=== PATIENT | female | born 1970 | race Caucasian/White ===

== ENCOUNTER → 2017-03-18 | Outpatient (CLI) | payer OTHER | LOC: FIMAGING 14:27 | PROVIDERS: ATTEND Obstetrics & Gynecology | DX: Z12.31 Encounter for screening mammogram for malignant neoplasm of breast (principal) ==

== ENCOUNTER → 2017-04-14 | Outpatient (CLI) | payer OTHER | LOC: BMCIMAGING 12:45 | PROVIDERS: ATTEND Family Medicine | DX: M79.661 Pain in right lower leg (principal) ==

== ENCOUNTER 2017-07-06 05:47 | Observation (INO) | payer OTHER ==
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
[2017-07-06] MEDS ORDERED: ceFAZolin 2 GM/SWFI 2 GM/20 ML SYR IVP ONE (06:14)
[2017-07-06] MEDS ORDERED: LR 1,000 ML IV ONE (06:14)
[2017-07-06] MEDS ORDERED: BUPIVACAINE 0.5% 30 ML SDV ONE (06:16)
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
[2017-07-06] MEDS ORDERED: SCOPOLAMINE HYDROBROMIDE 1 MG/3 DAYS PATCH TD ONE ×2 (06:58→07:09)
[2017-07-06] MEDS ORDERED: MIDAZOLAM 2 MG/2 ML VIAL IVP ONE (06:58)
[2017-07-06] MEDS ORDERED: fentaNYL 250 MCG/5 ML INJ ONE (07:04)
[2017-07-06] MEDS ORDERED: PROPOFOL 200 MG/20 ML VIAL ONE (07:05)
[2017-07-06] MEDS ORDERED: ROCURONIUM 50 MG/5 ML VIAL ONE (07:06)
[2017-07-06] MEDS ORDERED: DEXAMETHASONE 4 MG/ML VIAL ONE ×2 (07:06)
[2017-07-06] MEDS ORDERED: MIDAZOLAM 2 MG/2 ML VIAL ONE (07:10)
--- NOTE | 2017-07-06 07:15 | PDHPUP ---
History & Physical Update H&P update statement: This history and physical update is based on an assessment of the patient which was completed after admission or registration (within 24 hours), but prior to the surgery/procedure. H&P update: H&P reviewed & patient examined
[2017-07-06] MEDS ORDERED: PHENYLEPHRINE HCL 100 MCG/ML SYR ONE (07:35)
[2017-07-06] MEDS ORDERED: fentaNYL 100 MCG/2 ML INJ ONE ×2 (08:57→10:08)
[2017-07-06] MEDS ORDERED: HYDROmorphONE/DILAUDID 2 MG/ML INJ IVP PRN ×2 (09:08→11:39)
[2017-07-06] MEDS ORDERED: ONDANSETRON 4 MG/2 ML VIAL IVP PRN ×2 (09:08→09:36)
[2017-07-06] MEDS ORDERED: NALOXONE HCL 0.4 MG/ML INJ IVP PRN ×2 (09:08→09:41)
[2017-07-06] MEDS ORDERED: ONDANSETRON 4 MG/2 ML VIAL ONE (09:10)
[2017-07-06] MEDS ORDERED: SUGAMMADEX SODIUM 200 MG/2 ML VIAL IVP ONE (09:16)
[2017-07-06] MEDS ORDERED: ONDANSETRON DISINTEGRATING 4 MG TAB PO PRN (09:36)
[2017-07-06] MEDS ORDERED: KETOROLAC 30 MG/1 ML SDV IVP ONE (09:36)
--- NOTE | 2017-07-06 09:37 | POSTOPPROG ---
Post Op Note Date of Operation: 07/06/17 Surgeon: Arely Gresham Powertrain Design Engineer: Zuly Turner Anesthesiologist: Dr Trell Peguero Anesthesia: GET(General Endotracheal) Pre-op Diagnosis: Severe dysmenorrhea and complex R ovarain mass Post-op Diagnosis: same Procedure: TLH, RSO, L salpingectomy Findings: normal uterus and left tube and ovary, complex mass on right ovary Inf/Abcess present in the surg proc area at time of surgery?: No Depth: Organ Space EBL: 50-100 Total fluids administered: 1000 Complications: none Specimen(s): uterus with cervix, right tube and ovary, left tube
[2017-07-06] MEDS ORDERED: HYDROmorphONE/DILAUDID 6 MG/30 ML PCA IV PRN (09:41)
[2017-07-06] MEDS ORDERED: MAGNESIUM HYDROXIDE 30 ML UDCUP PO PRN (09:42)
[2017-07-06] MEDS ORDERED: LACTULOSE 20 GM/30 ML UDCUP PO PRN (09:42)
[2017-07-06] MEDS ORDERED: POLYETHYLENE GLYCOL 3350 17 GM PKT PO PRN (09:42)
[2017-07-06] MEDS ORDERED: BISACODYL 10 MG SUPP PR PRN (09:42)
--- NOTE | 2017-07-06 10:11 | POSTANESTH ---
Post Anesthetic Evaluation Cardiovascular Status: Normal, Stable Respiratory Status: Normal, Stable Level of Consciousness/Mental Status: Can Participate in Eval Pain Control: Adequate, Prn Tx Ordered Nausea/Vomiting Control: Adequate, Prn Tx Ordered Complications Possibly Related to Anesthesia: None Noted
[2017-07-06] MEDS ORDERED: KETOROLAC 30 MG/1 ML SDV ONE (10:12)
[2017-07-06] MEDS: fentaNYL 100 MCG/2 ML INJ IVP PRN ×2 (10:14→10:36)
--- NOTE | 2017-07-06 10:29 | GOP ---
[f rep st] OPERATIVE REPORT DATE OF OPERATION: 07/06/2017 SURGEON: Arely Gresham MD FOAM CASTER: Zuly Turner DO. ANESTHESIA: General anesthesia. ANESTHESIOLOGIST: Trell Peguero MD. PREOPERATIVE DIAGNOSIS: Severe dysmenorrhea and complex right ovarian mass. POSTOPERATIVE DIAGNOSIS: Severe dysmenorrhea and complex right ovarian mass. PROCEDURE PERFORMED: Total laparoscopic hysterectomy, right salpingo oophorectomy, left salpingectom y. FINDINGS: ESTIMATED BLOOD LOSS: For the procedure was 50 cc. DESCRIPTION OF PROCEDURE: The patient was taken to the operating room where she was placed under gen eral anesthesia without difficulty. She was prepped and draped in the dorsal lithotomy position and a Cassidy catheter was placed in her bladder. After adequate anesthesia was assured and a WHO time-out was performed, an open-sided speculum was placed in the vagina, and a single-tooth tenaculum was use d to grasp the anterior lip of the cervix. The uterus sounded to 8 cm. The cervix was progressively dilated with Pierre dilators to a #7.5. The MAUREEN uterine manipulator with the 8 cm sound and a smal l cervical cup was placed through the cervix, balloon was inflated, and the cup was placed around the cervix and the speculum was removed. The tenaculum was removed. Attention was then turned to the abdominal portion of the procedure. After injection of Marcaine, a 5 mm transverse incision was made in the infraumbilical skin fold. A Veress needle was placed throug h that incision and there was a good drop in pressure and a normal saline drop test, and pneumoperito neum was created with carbon dioxide gas. An atraumatic trocar was placed under direct visualization and the cavity was entered. Inspection of the cavity revealed a normal size uterus. The patient wa s placed in steep Trendelenburg. After injection of Marcaine, a 5 mm skin incision was made in the l eft lower quadrant and a 1 cm skin incision was made in the right lower quadrant and atraumatic troca rs were placed under direct visualization on both sides. The bowel was moved away. The uterus was m anipulated with the MAUREEN and visualization was made and photographs were taken of the normal-appearin g uterus and normal-appearing left tube and ovary and the right ovary with a complex cyst. There wer e no excrescences, no abnormalities in the fallopian tube or any other abnormalities in the pelvis to make us concerned of malignancy. The left fallopian tube was grasped at the fimbriated end and elev ated. The LigaSure was used to cauterize and cut along the fimbriated end, along the mesosalpinx to the cornual region of the uterus and the tube was directly removed through the 10 mm port. Dissectio n was then continued along the utero-ovarian ligament. The round ligament was dissected in the anter ior and posterior planes, and the broad ligament was dissected to form the bladder flap. The vesicou terine peritoneum was elevated and dissected off with the LigaSure. The uterine vessels were identif ied and cauterized and cut also with the LigaSure, and good hemostasis was assured. The fascial plan e was dissected along the posterior aspect of the cervix with visualization of the cup around the cer vix circumferentially dissected to create the bladder flap and the posterior flap. Attention was then turned to the right side of the abdomen and the right ovary with the mass was elev ated and the ureter was clearly visualized peristalsing normally in the pelvic brim away from the ova jarred vasculature. The right tube and ovary were grasped at the fimbriated end of the tube and the in fundibulopelvic ligament was cauterized and cut along the right pelvic plane, and that was carried ou t to the cornual region of the uterus. The round ligament was then entered into the anterior and po sterior plane, the broad ligament was also dissected and the bladder flap was continued from the plan e from the left side as well as the posterior aspect of the fascial plane along the cervical cup unti l it was clearly visualized throughout. The cup was clearly visualized and the area of the colpotomy was clearly demarcated. The hook of the LigaSure was then advanced and the colpotomy was made along the entire cervical cup without difficulty. There was good hemostasis. The uterus and right tube a nd ovary were then removed through the vagina, and a lap sponge was inserted through the vagina to co ntinue pneumoperitoneum. The 0 Vicryl V-Loc suture was then performed to close the colpotomy from le ft to right. The sutures were performed, and there was good hemostasis along the cuff. This was per formed without difficulty. The pelvis was then copiously irrigated with warm normal saline. There w as hemostasis observed along the vaginal cuff. The left ovary was normal and hemostatic. The bed of the right ovary was normal and hemostatic, and both ureters were visualized post surgery peristalsin g normally without difficulty. The appendix was visualized as was the liver and the gallbladder whic h appeared normal. The 1 cm trocar was then removed and the fascia was closed with a fascial closure device with 0 Vicryl, and all of the trocars were removed. Pneumoperitoneum was allowed to escape, and the incisions were repaired with 4-0 Vicryl in a subcuticular fashion and Steri-Strips were appli ed. The patient tolerated the procedure well. Sponge, lap, needle, and instrument counts were corre ct x2. The patient went to the recovery room in good condition. INDICATIONS FOR PROCEDURE: The patient is a 46-year-old, 0, with a longstanding history of s evere dysmenorrhea for most of her life. She has regular cycles every 28 days, bleeds 5-7 days, requ ires scheduled nonsteroidal anti-inflammatories as well as muscle relaxers and narcotics during every period every month. We have explored multiple hormonal options to control her periods with oral con traceptive pills, Mirena IUD. She was unable to tolerate these. She had an ultrasound to evaluate h er continued bleeding and pain, and the ultrasound demonstrated a complex right ovarian mass which wa s 3 x 4 cm, had an irregular-shaped complex nature of the mass and low level blood flow. The left ov jose was normal. Uterus was normal. I performed tumor markers, which were all normal. There was no ascites or any other characteristics for the mass. However, my recommendation was to proceed with re moval of the mass for a diagnosis and treatment, and proceed with hysterectomy because of her longsta nding history of dysmenorrhea. The patient agreed with this plan. She was consented for the procedu re. She understood the risks and benefits. The risks including bleeding, infection, damage to inter nal organs, ovaries, bowel, bladder, nerves, blood vessels, ureters, need for open procedure, need fo r additional procedures. She understood these risks and benefits agreed to proceed. FLUID REPLACEMENT: 1000 cc. URINE OUTPUT: 160 cc. PATHOLOGIC SPECIMEN: Uterus with cervix, right tube and ovary and left tube. /[id number]/MODL
[2017-07-06] MEDS: HYDROCODONE/APAP 5/325 TAB PO PRN ×4 (14:04→23:46)
[2017-07-06] MEDS: KETOROLAC 30 MG/1 ML SDV IVP SCH ×2 (16:22→21:57)
[2017-07-06] MEDS: SIMETHICONE 80 MG TAB CHEW PO PRN (21:57)
[2017-07-06] MEDS: SENNOSIDES/DOCUSATE SODIUM TAB PO SCH (23:51)
[2017-07-07] MEDS ORDERED: KETOROLAC 30 MG/1 ML SDV IVP SCH (05:00)
[2017-07-07] MEDS: SIMETHICONE 80 MG TAB CHEW PO PRN (05:00)
[2017-07-07] MEDS: HYDROCODONE/APAP 5/325 TAB PO PRN ×2 (05:00→08:50)
[2017-07-07 05:33] LABS: PLATELET COUNT 163 10^3/uL (150-400)
[2017-07-07] MEDS: SENNOSIDES/DOCUSATE SODIUM TAB PO SCH (08:51)
[2017-07-07] MEDS ORDERED: IRON POLYSAC/IRON HEME 28 MG TAB PO SCH (10:00)
--- NOTE | 2017-07-07 10:08 | SOAPPROG ---
SOAP Progress Note Assessment/Plan: Assessment: 46 y/o POD #1 s/p TLH, RSO, L salpingectomy doing well. Plan: Pt is ready to d/c home with [place], Ibuprofen, and Bifera. Follow-up @ [facility] 2 and 4 weeks. Call for fever, heavy vaginal bleeding, severe nausea/ vomiting or other concerns. 07/07/17 10:02 Subjective: Pt is doing well this am. She has good pain control with [place] and Ibuprofen. She is tolerating reg diet and ambulating and voiding without difficulty. She is ready to d/c home. Objective: Vital Signs Temp Pulse Resp BP Pulse Ox 36.8 C 63 16 85/50 L 95 07/07/17 05:00 07/07/17 05:00 07/07/17 05:00 07/07/17 05:00 07/07/17 05:00 Laboratory Results 07/07/17 05:28 07/06/17 07/07/17 07/08/17 05:59 05:59 05:59 Intake Total 2600 Output Total 1850 Balance 750 - Pending Discharge Pending Discharge Within 24 Hours: Yes Pending Discharge Date: 07/08/17 Pending Discharge Time: 11:00 Physical Exam - Physical Exam General Appearance: WD/WN, alert, no apparent distress Neck: non-tender, full range of motion, supple Respiratory: chest non-tender, lungs clear, normal breath sounds Cardiac/Chest: regular rate, rhythm Abdomen: normal bowel sounds, non-tender, soft, other (incision c/d/i) Extremities: swelling (no), Luly's sign (neg) ICD10 Worksheet Patient Problems: Problems Problem Status Onset Status post laparoscopic hysterectomy Acute
[2017-07-07 10:09] VITALS: BP 96/54
[2017-07-07] MEDS ORDERED: IBUPROFEN 600 MG TAB PO SCH (11:00)
== END 2017-07-07 11:05 | disposition home or self-care (01) ==
LOC: F3E 05:47 → FOB 11:24
PROVIDERS: ADMIT Obstetrics & Gynecology; ATTEND Obstetrics & Gynecology
DX: N83.201 Unspecified ovarian cyst, right side (principal); D25.2 Subserosal leiomyoma of uterus; N80.0 Endometriosis of uterus
CPT/HCPCS: 58571; G0378; J0690; J1100; J1170; J1885; J2250; J2370; J2405; J2704; J3010

== ENCOUNTER 2017-07-18 23:47 | Emergency (ER) | payer OTHER ==
[2017-07-19] MEDS ORDERED: NS 1,000 ML IV ONE (00:16)
[2017-07-19 00:58] LABS: PLATELET COUNT 230 10^3/uL (150-400)
[2017-07-19] MEDS ORDERED: IOPAMIDOL (ISOVUE-300) 100 ML BTL ONE (01:01)
[2017-07-19] MEDS ORDERED: IBUPROFEN 600 MG TAB PO ONE (01:23)
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
[2017-07-19 03:07] VITALS: BP 110/79
== END 2017-07-19 03:12 | disposition home or self-care (01) ==
DX: N99.820 Postprocedural hemorrhage of a genitourinary system organ or structure following a genitourinary system procedure (principal); E86.9 Volume depletion, unspecified; Z79.82 Long term (current) use of aspirin; Z87.891 Personal history of nicotine dependence
CPT/HCPCS: Q9967

== ENCOUNTER → 2018-04-21 | Outpatient (CLI) | payer OTHER | LOC: FIMAGING 14:16 | PROVIDERS: ATTEND Obstetrics & Gynecology | DX: Z12.31 Encounter for screening mammogram for malignant neoplasm of breast (principal) ==